=== PATIENT | female | born 1980 | race Caucasian/White ===

== ENCOUNTER 2018-03-24 13:44 | Outpatient (CLI) | payer SELFPAY ==
[2018-03-24 15:30] LABS: Hematocrit 34.3 % (30.3-42.9); Hemoglobin 11.2 gm/dl (10.1-14.3); Mean Corpuscular HGB Conc 33 % (30-34); Mean Corpuscular Hemoglobin 29 pg (28-32); Mean Corpuscular Volume 88 fl (79-97); Platelet Count 270 K/mm3 (140-440); Red Cell Distribution Width 15.1 % (13.2-15.2)
[2018-03-24 15:53] LABS: Alanine Aminotransferase 13 units/L (7-56); Uric Acid 4.2 mg/dL (3.5-7.6)
--- NOTE | 2018-03-24 16:29 | Ultrasound Report ---
FINAL REPORT EXAM: US OB BPP WO NON-STRESS HISTORY: well being TECHNIQUE: Biophysical profile obstetrical ultrasound PRIORS: None. FINDINGS: LMP 06/25/2017 clinical Age: 39 w 6 D LMP EDC 04/01/2018 Biophysical profile scoring 2 movement 2 tone 2 breathing 2 fluid 8/8 overall score Presentation: Cephalic Activity: Monitored Cardiac motion: 152 BPM using M-mode doppler Amniotic Fluid Volume: Adequate IMPRESSION: Single intrauterine viable with an approximate age of 38 weeks 6 days. Biophysical profile score is 8/8
[2018-03-24 17:39] VITALS: BP 124/77
[2018-03-24 19:33] LABS: Bilirubin,Urine NEG (Negative); Blood,Urine MOD (Negative); Color,Urine Straw (Yellow); Mucus,Urine FEW /HPF; Protein,Urine <15 mg/dL mg/dL (Negative); Urobilinogen,Urine < 2.0 mg/dL (<2.0)
--- NOTE | 2018-03-25 06:48 | Progress Note ---
Assessment and Plan A: at 38 weeks gestation. Elevated blood pressures resolved. Negative preeclamptic labs. Reactive NST. P: Discharge patient home. Pt. to collect 24 hour urine at home and return on Tuesday03/26/18 to turn in urine and for BP recheck. Advised pt. to rest at home. Preeclamptic warning signs discussed with pt. Advised pt. re: daily movement counting. Advised pt. to follow up also with [facility] on Tuesday03/27/18. Consulted with Dr. Reed re: this patient. Subjective - Subjective Date of service: 03/24/18 Principal diagnosis: at 38 weeks gestation; elevated BPs Interval history: 38 year old with elevated blood pressures at office was sent to L&D triage for preeclamptic labs. Patient states she receives care at [facility]. Patient denies headache, visual disturbance, nausea or vomiting, abdominal or epigastric pain, or swelling. Patient reports active movement. Patient denies leaking of fluid, vaginal bleeding, or regular contractions. Patient reports: movement normal, no loss of fluid, no vaginal bleeding, no contractions Objective - Exam Abdomen: Present: normal appearance, soft. Absent: distention, tenderness, guarding Uterus: Present: normal, fundal height above umbilicus. Absent: tenderness FHR: category 1 Uterine Contraction Monitor Mode: External Cervical Dilatation: 0 Cervical Effacement Percentage: 40 station: -3 Uterine Contraction Pattern: Irregular Uterine Contraction Intensity: Mild Extremities: normal - Labs Labs: Abnormal Labs 03/24/18 03/24/18 15:11 15:11 WBC 13.5 H Creatinine 0.4 L Lactate Dehydrogenase 204 H Laboratory Results - last 24 hr 03/24/18 03/24/18 03/24/18 15:11 15:11 19:00 WBC 13.5 H RBC 3.90 Hgb 11.2 Hct 34.3 MCV 88 MCH 29 MCHC 33 RDW 15.1 Plt Count 270 Creatinine 0.4 L Estimated GFR > 60 Uric Acid 4.2 AST 19 ALT 13 Lactate Dehydrogenase 204 H Urine Color Straw Urine Turbidity Clear Urine pH 5.0 Ur Specific Porter 1.008 Urine Protein <15 mg/dl Urine Glucose (UA) Neg Urine Ketones Neg Urine Blood Mod Urine Nitrite Neg Urine Bilirubin Neg Urine Urobilinogen < 2.0 Ur Leukocyte Esterase Neg Urine WBC (Auto) 1.0 Urine RBC (Auto) 2.0 U Epithel Cells (Auto) 1.0 Urine Mucus Few
[2018-03-26 14:37] LABS: Creatinine,Urine 60.4 mg/dL (0.1-20.0)
[2018-03-26 14:45] LABS: Creatinine 24 Hour,Urine 1.1 (0.8-2.8)
== END 2018-03-24 20:15 | disposition home or self-care (01) ==
LOC: TRG 13:44
PROVIDERS: ATTEND Obstetrics & Gynecology
DX: O47.1 False labor at or after 37 completed weeks of gestation (principal); Z3A.38 38 weeks gestation of pregnancy
CPT/HCPCS: 36415; 59025; 76819; 81001; 82565; 82570; 83615; 84156; 84450; 84460; 84550; 85027; 87086

== ENCOUNTER 2018-03-31 09:20 | Inpatient (IN) | payer SELFPAY ==
[2018-03-31] MEDS ORDERED: REGLAN IV ONE (09:25)
[2018-03-31] MEDS ORDERED: EMLA TP PRN (09:25)
[2018-03-31] MEDS ORDERED: PEPCID IV ONE (09:25)
[2018-03-31] MEDS ORDERED: BICITRA PO ONE (09:25)
--- NOTE | 2018-03-31 09:31 | History and Physical Report ---
History of Present Illness Date of examination: 03/31/18 Date of admission: 03/31/18 09:20 Chief complaint: Here for elective repeat History of present illness: 38-year-old at 39 weeks presents for elective repeat section, she is a [facility] patient. course has been unremarkable patient's GBS positive. 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 denies: smoking, alcohol abuse, prescription drug abuse, IV drug use - Obstetrical History Expected Date of Delivery: 04/07/18 Actual Gestation: 39 Week(s) 0 Day(s) : 2 Para: 1 Medications and Allergies Allergies Allergy/AdvReac Type Severity Reaction Status Date / Time No Known Allergies Allergy Unverified 03/24/18 15:03 Review of Systems Constitutional: no fever, no chills, no sweats, no weakness Eyes: no diplopia, no photophobia Cardiovascular: no chest pain, no syncope, no lightheadedness, no shortness of breath, no dyspnea on exertion, no high blood pressure Respiratory: no cough, no shortness of breath, no dyspnea on exertion, no congestion Gastrointestinal: no abdominal pain, no nausea, no vomiting, no heartburn, no indigestion Genitourinary: no vaginal bleeding, no vaginal discharge, no leakage of fluid, no genital sores, no contractions - Physical Exam Cardiovascular: Regular rate, Normal S1, Normal S2 Lungs: Positive: Clear to auscultation, Normal air movement Abdomen: Positive: normal appearance, soft. Negative: distention, tenderness, guarding, rigidity Genitourinary (Female): Positive: normal external genitalia Uterus: Positive: enlarged (EFW ~ 3600). Negative: tender Adnexa: both: normal Extremities: Positive: normal - Obstetrical FHR: category 1 Results All other labs normal. Assessment and Plan A: 38-year-old at 39+2 weeks prior desires repeat P: -Patient has been consented -Proceed to the OR once available - Patient Problems (1) 39 weeks gestation of Current Visit: Yes Status: Acute (2) Declines vaginal after trial Current Visit: Yes Status: Acute
[2018-03-31] MEDS ORDERED: LACTATED RINGERS 1,000 ML IV SCH (10:00)
[2018-03-31] MEDS ORDERED: PITOCin/NS 20 UNIT/1000ML DRIP 20 UNITS/1,000 ML BAG IV SCH ×2 (10:00→16:00)
[2018-03-31] MEDS ORDERED: ANCEF/STERILE WATER 2 GM/20 ML 2 GM/20 ML SYRINGE IV NR (10:00)
[2018-03-31 12:11] LABS: Basophils # (Auto) 0.1 K/mm3 (0.0-0.1); Basophils % (Auto) 0.5 % (0.0-1.8); Eosinophils % (Auto) 0.3 % (0.0-4.3); Hematocrit 38.9 % (30.3-42.9); Hemoglobin 13.3 gm/dl (10.1-14.3); Lymphocytes # (Auto) 1.6 K/mm3 (1.2-5.4); Lymphocytes % (Auto) 14.5 % (13.4-35.0); Mean Corpuscular HGB Conc 34 % (30-34); Mean Corpuscular Hemoglobin 29 pg (28-32); Mean Corpuscular Volume 86 fl (79-97); Monocytes # (Auto) 0.7 K/mm3 (0.0-0.8); Monocytes % (Auto) 6.7 % (0.0-7.3); Platelet Count 235 K/mm3 (140-440); Red Blood Count 4.52 M/mm3 (3.65-5.03); Red Cell Distribution Width 15.8 % (13.2-15.2)
[2018-03-31] MEDS ORDERED: BICITRA ONE (12:20)
[2018-03-31] MEDS ORDERED: REGLAN ONE (12:20)
[2018-03-31] MEDS ORDERED: NEO SYNEPHRINE/NS Syringe(OR USE) IV ONE (14:46)
[2018-03-31] MEDS ORDERED: LACTATED RINGERS 1,000 ML ONE (14:46)
[2018-03-31] MEDS ORDERED: XYLOCAINE MPF 2% ONE (14:54)
[2018-03-31] MEDS ORDERED: ASTRAMORPH PF 10MG/10ML ONE (14:59)
[2018-03-31] MEDS ORDERED: TUCKS PAD TP PRN (15:33)
[2018-03-31] MEDS ORDERED: ZOFRAN IV PRN (15:33)
[2018-03-31] MEDS ORDERED: PHENERGAN PR PRN (15:33)
[2018-03-31] MEDS ORDERED: MYLICON PO PRN (15:33)
[2018-03-31] MEDS ORDERED: TORADOL IV PRN (15:33)
[2018-03-31] MEDS ORDERED: LANSINOH TP PRN (15:33)
[2018-03-31] MEDS ORDERED: TYLENOL PO PRN (15:33)
[2018-03-31] MEDS ORDERED: NARCAN 0.4 MG/1 ML IV PRN (15:33)
[2018-03-31] MEDS ORDERED: SENOKOT PO PRN (15:33)
[2018-03-31] MEDS ORDERED: ANUCORT-HC PR PRN (15:33)
--- NOTE | 2018-03-31 15:58 | Operative Report ---
Operative Report Operative Report: DATE: 03/31/2018 PREOPERATIVE DIAGNOSIS: 38-year-old at 39+2 weeks, prior desires repeat POSTOP DIAGNOSIS: As above plus adhesions NAME OF PROCEDURE: Repeat low transverse section Adhesiolysis SURGEON: ROWAN SEN MD CONCRETE BUSTER OPERATOR: Lillian ANESTHESIA: Combined spinal epidural EBL: 800 mL PATHOLOGY SPECIMEN: None URINE OUTPUT: 100 mL FINDINGS: Male in cephalic presentation, time of delivery 14:51, weight 7 lbs. 5 oz. or 3339 g, Apgars 8 and 9, moderate adhesions, normal uterus tubes and ovaries bilaterally DESCRIPTION OF PROCEDURE: She was taken to the operating room where she was prepped and draped in a sterile fashion, she was placed in the dorsal supine position. Pfannenstiel incision was performed through her prior incisional scar which was carried through to underlying rectus fascia which was scored in the midline. The fascial incision was extended laterally with use of Gray scissors, the anterior leaf was then grasped with Kochers forceps elevated dissected sharply and bluntly off the underlying rectus in a similar fashion inferior leaf was grasped elevated dissected sharply and bluntly off the underlying rectus. The rectus was in the midline, peritoneal cavity entered with adhesions noticed. Adhesiolysis was performed in the usual manner , good visualization of bladder was noted. A bladder blade was placed in the patient's pelvic cavity. A hysterotomy incision was then performed in the lower segment with clear amniotic fluid noted, hysterotomy incision was extended laterally with the use of fingers manually. in cephalic presentation was delivered in the usual manner; cord was clamped and cut was handed over to waiting nursery staff. The placenta was then delivered manually intact, the uterus was exteriorized cleared of all clots and debris. Hysterotomy incision was then closed in a running locked fashion with 0 Vicryl on a CTX; using the same suture was imbricate the initial layer. Interrupted [id number] stitches were used to obtain hemostasis. Uterus was then returned to the patient's pelvic cavity; peritoneal edges were grasped with hemostats and Katy's elevated copious irrigation was used to clear the gutters of all clots and debris. Tercel hemostatic agent was then applied to the hysterotomy incision as a means to prevent future bleeding. The peritoneal layer was then closed in a running fashion with 3-0 Vicryl and the rectus was reapproximated with a single [id number] stitch. The fascia was closed in a running fashion with 0 Vicryl and tied in the opposite side. The subcutaneous layer was irrigated and then reapproximated with interrupted ajedkf-[id number]-pkwra stitches. The skin was closed in a subcuticular manner with 4-0 Vicryl. She tolerated the procedure well lap and instrument counts were correct 2 she did receive 2 g of Ancef prior to incision she is transferred to PACU in stable condition thank you.
[2018-03-31] MEDS ORDERED: D5LR 1,000 ML IV SCH (16:00)
[2018-03-31] MEDS ORDERED: SODIUM CHLORIDE FLUSH SYRINGE 10 ML IV NR (16:00)
[2018-03-31] MEDS ORDERED: NACL 0.9% IR ONE (18:00)
[2018-03-31] MEDS ORDERED: WATER FOR IRRIG STERILE IR ONE (18:00)
[2018-04-01 04:07] LABS: Hematocrit 27.3 % (30.3-42.9); Hemoglobin 9.2 gm/dl (10.1-14.3)
[2018-04-01] MEDS ORDERED: M-M-R II VACCINE SUB-Q ONE (06:00)
[2018-04-01] MEDS ORDERED: BOOSTRIX IM ONE (06:00)
[2018-04-01] MEDS: FEOSOL PO SCH (09:40)
[2018-04-01] MEDS: PRENATAL VITAMIN PO SCH (09:40)
--- NOTE | 2018-04-01 10:15 | Progress Note ---
Assessment and Plan A: /postop day 1 S/P repeat LTCS. Anemia. P: Encouraged ambulation. Supplement with iron. Subjective - Subjective Date of service: 04/01/18 Principal diagnosis: /postop day 1 S/P repeat LTCS. Interval history: /postop day 1. Patient is doing well. Lane catheter has been removed and she has been up to bathroom several times. Voiding without difficulty. Ambulating in the room, not in the nation yet. No flatus yet. Tolerating liquid diet without nausea or vomiting. Patient denies headache, chest pain, cough, shortness of breath, leg pain, chest pain, shortness of breath, heavy bleeding. Patient reports: appetite normal, voiding normally, pain well controlled, flatus , ambulating normally [place]: doing well Objective - Vital Signs Latest vital signs: Vital Signs Temp Pulse Resp BP BP Pulse Ox 04/01/18 07:32 98.5 F 87 16 114/76 98 04/01/18 04:35 98.0 F 81 18 133/79 96 04/01/18 00:00 98.2 F 80 18 145/75 98 03/31/18 20:10 98.2 F 96 H 18 157/74 99 03/31/18 17:45 98.5 F 80 18 140/85 100 03/31/18 12:04 99 H 100 03/31/18 11:59 84 100 03/31/18 11:54 90 100 03/31/18 11:49 87 100 03/31/18 11:44 85 100 03/31/18 11:39 93 H 99 03/31/18 11:37 97 H 89 03/31/18 11:34 93 H 99 03/31/18 11:29 91 H 99 03/31/18 11:24 93 H 99 03/31/18 11:19 97 F L 91 H 20 139/84 99 03/31/18 11:18 89 139/84 Intake and Output 03/31/18 04/01/18 04/01/18 23:59 07:59 15:59 Intake Total 240 Output Total 1000 Balance -760 Intake: Oral 240 Output: Urine 1000 Indwelling Catheter 1000 Other: Total, Intake Amount 120 Total, Output Amount 600 - Exam Cardiovascular: Present: Regular rate, Normal S1, Normal S2 Lungs: Present: Clear to auscultation Abdomen: Present: normal appearance, soft, normal bowel sounds (hypoactive bowel sounds). Absent: distention, tenderness, guarding, rigidity Uterus: Present: normal, firm, fundal height below umbilicus. Absent: bogginess , tenderness Extremities: Present: normal. Absent: tenderness, edema - Labs Labs: Abnormal lab results 03/31/18 04/01/18 Range/Units 11:30 03:19 WBC 11.2 H (4.5-11.0) K/mm3 Hgb 9.2 L D (10.1-14.3) gm/dl Hct 27.3 L D (30.3-42.9) % RDW 15.8 H (13.2-15.2) % Seg Neutrophils % 78.0 H (40.0-70.0) % Seg Neutrophils # 8.7 H (1.8-7.7) K/mm3
[2018-04-01] MEDS: MOTRIN PO PRN (16:34)
[2018-04-01] MEDS: PERCOCET 5/325 PO PRN (19:52)
[2018-04-02] MEDS: PERCOCET 5/325 PO PRN ×2 (08:53→15:45)
[2018-04-02] MEDS: FEOSOL PO SCH (08:58)
[2018-04-02] MEDS: PRENATAL VITAMIN PO SCH (08:58)
--- NOTE | 2018-04-02 11:28 | Progress Note ---
Assessment and Plan A: /postop day 2 S/P LTCS. Anemia. P: Continue iron supplementation. Encouraged ambulation. Anticipate discharge will be tomorrow. Subjective - Subjective Date of service: 04/02/18 Principal diagnosis: /postop day 2 S/P repeat LTCS. Interval history: /postop day 2 S/P LTCS. Patient is doing well. She is ambulating well and voiding without difficulty. + flatus. Tolerating a regular diet without nausea or vomiting. Patient reports small amount of lochia. Patient denies headache, chest pain, cough, shortness of breath, abdominal pain , leg pain, or heavy vaginal bleeding. Patient reports: appetite normal, voiding normally, pain well controlled, flatus , ambulating normally : doing well Objective - Vital Signs Latest vital signs: Vital Signs Temp Pulse Resp BP BP Pulse Ox 04/02/18 00:00 98.9 F 78 18 138/73 97 04/01/18 19:52 18 04/01/18 15:41 98.7 F 87 18 118/57 100 Intake and Output 04/01/18 04/02/18 04/02/18 23:59 07:59 15:59 Intake Total 240 Balance 240 Intake: Oral 240 Other: Total, Intake Amount 240 # Voids Void 1 1 - Exam Cardiovascular: Present: Regular rate, Normal S1, Normal S2 Lungs: Present: Clear to auscultation Abdomen: Present: normal appearance, soft, normal bowel sounds. Absent: distention, tenderness, guarding, rigidity Uterus: Present: normal, firm, fundal height below umbilicus. Absent: bogginess , tenderness Extremities: Present: normal. Absent: tenderness, edema Incision: Present: normal, dry, intact, dressed
[2018-04-02] MEDS: MOTRIN PO PRN ×2 (15:45→21:20)
[2018-04-03] MEDS: MOTRIN PO PRN ×2 (03:52→10:16)
--- NOTE | 2018-04-03 09:33 | Progress Note ---
Assessment and Plan - Patient Problems (1) S/P repeat low transverse Current Visit: Yes Status: Acute Plan to address problem: POD 3 - stable Discharge to home today Follow-up at [facility] in 2 weeks for incision check (2) Anemia in puerperium, baby delivered during current episode of care Current Visit: Yes Status: Acute Plan to address problem: Asymptomatic Continue iron therapy with ferrous sulfate 325mg PO Qday Subjective - Subjective Date of service: 04/03/18 Principal diagnosis: s/p Repeat LTCS; POD #3 Patient reports: appetite normal, voiding normally, pain well controlled, flatus , ambulating normally, no dizzy ambulation, no bowel movement : doing well, bottle feeding Objective - Vital Signs Latest vital signs: Vital Signs Temp Pulse Resp BP 04/03/18 03:52 18 04/03/18 00:00 98.7 F 77 16 114/79 04/02/18 21:20 18 04/02/18 15:30 99.1 F 89 18 120/78 - Exam Abdomen: Present: normal appearance, soft, normal bowel sounds Vulva: both: normal Uterus: Present: normal, firm, fundal height below umbilicus Extremities: Present: normal Incision: Present: normal, dry, intact
--- NOTE | 2018-04-03 09:38 | Discharge Summary ---
Providers - Providers Date of Admission: 03/31/18 09:20 Date of discharge: 04/03/18 Attending physician: WANG ROCK MD Primary care physician: WANG ROCK MD Hospitalization Reason for admission: section, IUP at term Delivery: Procedure: repeat low transverse Episiotomy: none Laceration: none Incision: normal, dry, intact Other procedures: none complications: none Discharge diagnosis: IUP at term delivered [place] baby: male Hospital course: Uncomplicated Condition at discharge: Stable Disposition: RI-01 TO HOME OR SELFCARE - Discharge Diagnoses (1) S/P repeat low transverse Status: Acute (2) Anemia in puerperium, baby delivered during current episode of care Status: Acute Comment: Asymptomatic Continue iron therapy Plan - Discharge Medications Prescriptions: Ferrous Sulfate [Feosol 325 MG tab] 325 mg PO QDAY #60 tablet Ibuprofen [Motrin 600 MG tab] 600 mg PO Q8H PRN #30 tablet PRN Reason: Pain Multivitamin with Iron [Multivitamins with Iron] 1 each PO DAILY #30 tablet oxyCODONE /ACETAMINOPHEN [Percocet 5/325] 1 tab PO Q6HR PRN #30 tablet PRN Reason: Pain - Provider Discharge Summary Activity: routine, no sex for 6 weeks, no heavy lifting 4 weeks, no strenuous exercise Diet: routine Instructions: routine Additional instructions: [] Smoking cessation referral if applicable(refer to patient education folder for contact #) [] Refer to [facility]'s [facility] Booklet Call your doctor immediately for: * Fever > 100.5 * Heavy vaginal bleeding ( >1 pad per hour) * Severe persistent headache * Shortness of breath * Reddened, hot, painful area to leg or breast * Drainage or odor from incision. * Keep incision clean and dry at all times and follow doctor's instructions regarding bathing/showering - Follow up plan Follow up: WANG ROCK MD [Primary Care Provider] - 14 Days (Follow-up at [facility] in 2 weeks for incision check)
[2018-04-03 09:54] VITALS: BP 118/77
[2018-04-03] MEDS: FEOSOL PO SCH (10:15)
[2018-04-03] MEDS: PRENATAL VITAMIN PO SCH (10:16)
== END 2018-04-03 12:30 | disposition home or self-care (01) | DRG 766 ==
LOC: APU 09:20 → OB 18:22
PROVIDERS: ADMIT Obstetrics & Gynecology; ATTEND Obstetrics & Gynecology
PROC: 10D00Z1 Extraction of Products of Conception, Low, Open Approach (ICD-10-PCS; principal; 2018-03-31)
DX: O99.824 Streptococcus B carrier state complicating childbirth (principal); O34.211 Maternal care for low transverse scar from previous cesarean delivery; O99.62 Diseases of the digestive system complicating childbirth; K66.0 Peritoneal adhesions (postprocedural) (postinfection); O90.81 Anemia of the puerperium; D64.9 Anemia, unspecified; Z3A.39 39 weeks gestation of pregnancy; Z37.0 Single live birth
CPT/HCPCS: 36415; 85014; 85018; 85025; 86850; 86900; 86901; 99211; G0463; J0690; J1885; J2274; J2370; J2405; J2590; J2765; J7120; J7121